=== PATIENT | female | born 2005 | race Caucasian/White ===

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

== ENCOUNTER 2024-08-15 18:47 | Emergency (ER) | payer MEDICAID ==
[2024-08-15] MEDS ORDERED: Ibuprofen 600 MG Tab PO ONE (19:46)
== END 2024-08-15 20:11 | disposition home or self-care (01) ==
LOC: JP.ED 18:47
DX: J02.9 Acute pharyngitis, unspecified (principal); F17.200 Nicotine dependence, unspecified, uncomplicated; Z79.899 Other long term (current) drug therapy
CPT/HCPCS: 87651; 99284

== ENCOUNTER 2024-12-25 09:20 | Emergency (ER) | payer MEDICAID | END 2024-12-25 10:40 | disposition home or self-care (01) | LOC: JP.ED 09:20 | DX: M22.02 Recurrent dislocation of patella, left knee (principal) | CPT/HCPCS: 73562-26-LT; 73562-LT; 99283 ==